=== PATIENT | female | born 1950 | race Caucasian/White ===

== ENCOUNTER → 2017-08-28 | Outpatient (CLI) | payer MEDICARE, BC ==
[2016-01-30 14:01] VITALS: BP 121/65
[~2017-08-28] MED LIST: ASPI-612 PO; ASPI-630 PO; CARB25DR OP; CITA10TA4 PO; CITA40TA5 PO; CLOP75TA PO; CYCL5TAB PO; DOXY100T PO; FEXO180T81 PO; FLUT10SP NS; FLUT9.9S NS; LISI2.5T PO; METO25TA4 PO; OMEP20CA9 PO; PRAV10TA2 PO; PRAV40TA2 PO; Promethazine Hcl/Codeine PO; RANI75TA95 PO; [UNRECOGNIZED DRUG - CODE] PO
--- NOTE | 2017-09-07 13:41 | KCIC ---
DATE: 08/28/2017 EXAM: MAMMO RAZA SCREENING BILATERAL HISTORY: Routine screening COMPARISON: 05/26/2011 This study was interpreted with the benefit of Computerized Aided Detection (CAD). The breast parenchyma shows scattered fibroglandular densities. Breast parenchyma level B. FINDINGS: 2-D and 3-D tomosynthesis imaging was performed in CC and MLO projections. No new or enlarging breast densities are seen. Minimal benign type calcification is present. IMPRESSION: There is no mammographic evidence of malignancy in either breast. BI-RADS CATEGORY: 2 BENIGN FINDING(S) RECOMMENDED FOLLOW-UP: 12M 12 MONTH FOLLOW-UP PQRS compliance statement: Patient information was entered into a reminder system with a target due date for the next mammogram. Mammography is a sensitive method for finding small breast cancers, but it does not detect them all and is not a substitute for careful clinical examination. A negative mammogram does not negate a clinically suspicious finding and should not result in delay in biopsying a clinically suspicious abnormality. "Our facility is accredited by the [employer] Mammography Program."
== END | disposition home or self-care (01) ==
LOC: KCIC MAMMO 10:50
PROVIDERS: ATTEND Internal Medicine
DX: Z12.31 Encounter for screening mammogram for malignant neoplasm of breast (principal)
CPT/HCPCS: 77063; G0202; 77067

== ENCOUNTER 2017-10-26 14:17 | Emergency (ER) | payer MEDICARE, BC ==
[2017-10-26] MEDS: HYDROcodone/APAP 5/325MG 1 TAB TABLET PO (14:47)
== END 2017-10-26 16:03 | disposition home or self-care (01) ==
LOC: ER 14:17
DX: S52.611A Displaced fracture of right ulna styloid process, initial encounter for closed fracture (principal); S52.501A Unspecified fracture of the lower end of right radius, initial encounter for closed fracture; Z86.73 Personal history of transient ischemic attack (TIA), and cerebral infarction without residual deficits; Z95.5 Presence of coronary angioplasty implant and graft; I10 Essential (primary) hypertension; I25.2 Old myocardial infarction; W00.0XXA Fall on same level due to ice and snow, initial encounter; Y93.89 Activity, other specified; Y99.8 Other external cause status; Y92.89 Other specified places as the place of occurrence of the external cause
CPT/HCPCS: 29125; 73110; 99284-25

== ENCOUNTER → 2018-08-10 | Outpatient (CLI) | payer MEDICARE ==
[2017-10-26 14:25] VITALS: BP 145/82
[~2018-08-10] MED LIST changes: +HYDR-971 PO
--- NOTE | 2018-08-10 12:13 | CARD ---
MR#: [id number] Date of Study: 08/10/2018 Ordering Physician: FORTINO ALFONSO, Referring Physician: FORTINO ALFONSO, Tech: Gloria Burgos APPROVED REPORT EXAM: Two-dimensional and M-mode echocardiogram with Doppler and color Doppler. Other Information Quality : GoodHR: 65bpm INDICATION CAD RISK FACTORS Hypertension Hyperlipidemia Previous smoker 2D DIMENSIONS RVDd3.0 (2.9-3.5cm)Left Atrium(2D)3.0 (1.6-4.0cm) IVSd0.7 (0.7-1.1cm)Aortic Root(2D)3.3 (2.0-3.7cm) LVDd5.4 (3.9-5.9cm)LVOT Diameter2.1 (1.8-2.4cm) PWd0.8 (0.7-1.1cm)LVDs2.8 (2.5-4.0cm) FS (%) 48.6 %SV113.3 ml Aortic Valve AoV Peak Beto.104.3cm/sAoV VTI20.0cm AO Peak GR.4.4mmHgLVOT Peak Beto.82.9cm/s LVOT VTI 20.49cmAO Mean GR.2mmHg MARY (VMAX)2.63oh2KUQ (VTI)3.60cm2 Mitral Valve MV E Xoivvgps28.2cm/sMV DECEL [id number] MV A Abvphvmu23.0cm/sMV FYZ70yl E/A Ratio1.2MVA (PHT)4.45cm2 TDI E/Lateral E'10.2E/Medial E'10.5 Pulmonary Valve PV Peak Jvkgunnq47.4cm/sPV Peak Grad.2mmHg Tricuspid Valve TR P. Wjqupfwh659ur/sRAP ZWRFOLVR2xgIc TR Peak Gr.60hnGaNCKA79egIo Pulmonary Vein S1 Qtuwnfqh84.8cm/sD2 Waadvcyq30.5cm/s PVa [id number] LEFT VENTRICLE The left ventricle is normal size. There is normal left ventricular wall thickness. The left ventricu lar systolic function is normal and the ejection fraction is within normal range. The Ejection Fracti on is 55-60%. There is normal LV segmental wall motion. Transmitral Doppler flow pattern is Grade II- pseudonormal filling dynamics. RIGHT VENTRICLE The right ventricle is normal size. There is normal right ventricular wall thickness. The right ventr icular systolic function is normal. ATRIA The left atrium size is normal. The right atrium size is normal. The interatrial septum is intact wit h no evidence for an atrial septal defect or patent foramen ovale as noted on 2-D or Doppler imaging. AORTIC VALVE The aortic valve is normal in structure and function. Doppler and Color Flow revealed trace aortic re gurgitation. There is no significant aortic valvular stenosis. Calculated aortic valve area is 3 cm2 with maximum pressure gradient of 5 mmHg and mean pressure gradient of 3 mmHg. MITRAL VALVE The mitral valve is thickened but opens well. There is no mitral valve stenosis. Doppler and Color-fl ow revealed trace mitral regurgitation. TRICUSPID VALVE The tricuspid valve is normal in structure and function. Doppler and Color Flow revealed trace tricus pid regurgitation. PULMONIC VALVE The pulmonic valve is not well visualized. Doppler and Color Flow revealed no pulmonic valvular regur gitation. GREAT VESSELS The aortic root is normal in size. The IVC is normal in size and collapses >50% with inspiration. PERICARDIAL EFFUSION There is no evidence of significant pericardial effusion. Critical Notification Critical Value: No <Conclusion> The left ventricle is normal size. The left ventricular systolic function is normal and the ejection fraction is within normal range. The Ejection Fraction is 55-60%. There is no significant aortic valvular stenosis. Calculated aortic valve area is 3 cm2 with maximum pressure gradient of 5 mmHg and mean pressure grad ient of 3 mmHg. Doppler and Color Flow revealed trace aortic regurgitation. Doppler and Color-flow revealed trace mitral regurgitation. Doppler and Color Flow revealed trace tricuspid regurgitation. Signed by : Hernandez Potts MD Electronically Approved : 08/10/2018 12:12:12
== END | disposition home or self-care (01) ==
LOC: ECHO 10:02
PROVIDERS: ATTEND Internal Medicine Cardiovascular Disease
DX: I25.10 Atherosclerotic heart disease of native coronary artery without angina pectoris (principal); I10 Essential (primary) hypertension; E78.5 Hyperlipidemia, unspecified; Z87.891 Personal history of nicotine dependence
CPT/HCPCS: 93306

== ENCOUNTER 2019-01-25 06:56 | Outpatient (CLI) | payer MEDICARE ==
[2019-01-25] VITALS (14 sets, daily range): BP systolic 84–148; BP diastolic 43–72
[~2019-01-25] VITALS: Ht 162.6 cm; Wt 82.6 kg
[~2019-01-25 06:56] MED LIST changes: +HYDR-3164 PO; -HYDR-971 PO; +OMEP20CA10 PO; -OMEP20CA9 PO; +RANI-348 PO; -RANI75TA95 PO
[2019-01-25 07:20] LABS: HEMATOCRIT 40.3 % (36.0-47.0); HEMOGLOBIN 13.1 g/dL (12.0-15.5); RED BLOOD COUNT 4.4 x10^6/uL (3.50-5.40); RED CELL DISTRIBUTION WIDTH 12.7 % (11.5-14.5); WHITE BLOOD COUNT 8.4 x10^3/uL (4.0-11.0)
[2019-01-25] MEDS ORDERED: ALEN70TA3 PO (07:23)
[2019-01-25] MEDS ORDERED: LOSA25TA54 PO (07:23)
[2019-01-25] MEDS ORDERED: CRESTOR10 MG PO (07:23)
[2019-01-25] MEDS ORDERED: MULT1TAB52 PO (07:23)
[2019-01-25 07:29] LABS: CALCIUM 8.6 mg/dL (8.5-10.1); CREATININE 0.9 mg/dL (0.6-1.0); GFR 61.9; POTASSIUM 4.2 mmol/L (3.5-5.1)
[2019-01-25 07:36] LABS: PROTHROMBIN TIME PATIENT 12.4 SEC (11.7-14.0)
[2019-01-25] MEDS ORDERED: IODIXANOL 320 MG/ML 100 ML VIAL. ONE (07:40)
[2019-01-25] MEDS ORDERED: LIDOCAINE 1% PF 2 ML VIAL. ONE (07:40)
[2019-01-25] MEDS ORDERED: NITROGLYCERIN 200 MCG/2 ML SYRINGE FOR CATH/VASC LAB. ONE (08:28)
[2019-01-25] MEDS ORDERED: MIDAZOLAM HCL/PF 2 MG/2 ML VIAL. ONE ×2 (08:28→09:12)
[2019-01-25] MEDS ORDERED: HEPARIN for IV BOLUS 10,000 UNIT/10 ML VIAL. ONE (08:28)
[2019-01-25] MEDS ORDERED: fentaNYL PF VIAL 100 MCG/2 ML VIAL ONE ×2 (08:28→09:12)
[2019-01-25] MEDS ORDERED: VERAPAMIL 5 MG/2 ML VIAL. ONE (08:28)
[2019-01-25] MEDS ORDERED: NITROGLYCERIN 200 MCG/2 ML SYRINGE FOR CATH/VASC LAB. IART ONE (08:45)
[2019-01-25] MEDS ORDERED: VERAPAMIL 5 MG/2 ML VIAL. IART ONE (08:45)
[2019-01-25] MEDS ORDERED: MIDAZOLAM HCL/PF 2 MG/2 ML VIAL. IV ONE ×2 (08:45→09:45)
[2019-01-25] MEDS ORDERED: fentaNYL PF VIAL 100 MCG/2 ML VIAL IV ONE ×2 (08:45→09:45)
[2019-01-25] MEDS ORDERED: LIDOCAINE 1% PF 2 ML VIAL. INJ ONE (08:45)
[2019-01-25] MEDS ORDERED: HEPARIN for IV BOLUS 10,000 UNIT/10 ML VIAL. IART ONE (08:45)
[2019-01-25] MEDS ORDERED: BIVALIRUDIN 250 MG VIAL. IV ONE ×2 (09:02→09:15)
[2019-01-25] MEDS ORDERED: CLOPIDOGREL BISULFATE 75 MG TABLET ONE (09:41)
[2019-01-25] MEDS ORDERED: ASPIRIN 325 MG TABLET ONE (09:41)
[2019-01-25] MEDS ORDERED: ASPIRIN 325 MG TABLET PO ONE (09:45)
[2019-01-25] MEDS ORDERED: CLOPIDOGREL BISULFATE 75 MG TABLET PO ONE (09:45)
[2019-01-25] MEDS ORDERED: IODIXANOL 320 MG/ML 100 ML VIAL. IART ONE (10:00)
--- NOTE | 2019-01-25 10:14 | CARD ---
MR#: [id number] Date of Study: 01/25/2019 Ordering Physician: FORTINO ALFONSO, Referring Physician: FORTINO ALFONSO Tech: LENNOX SNYDER RTR APPROVED REPORT Technologist: LENNOX SNYDER RTR Nurse: JYOTHI HLIL RN Procedure(s) performed: 1. Left heart catheterization, selective coronary angiography and left ventr iculography via right transradial approach 2. Successful PCI/drug eluting stent placement to left anterior descending artery Moderate sedation:60 mins Fluoro time:18.6 min Dose:61.8 GYCM2 Contrast: 144 ml INDICATION The indication(s) include : unstable angina . CSHA Clinical Frailty Scale CSHA Clinical Frailty Scale: Very Fit Heart Failure Heart Failure: No PROCEDURE NARRATIVE After explaining the risks, benefits and alternative options, informed consent was obtained from rosie ent. Patient was brought to the cardiac Shredding Machine Knife Changer and right wrist was prepped and draped in the usual fashion after confirming a positive modified Rafi's test. Arterial access was obtained in the righ t radial artery and a 6 Angolan sheath was inserted. 6 Angolan Antonio catheter was used to perform mark ective angiography of the left and right coronary arteries. 6 Angolan pigtail catheter was used to pe rform left ventriculography. The following findings were noted. FINDINGS 1. Hemodynamics: Left ventricular end-diastolic pressure of 15 mmHg. No pullback gradient across th e aortic valve. 2. Left ventriculography: Normal left ventricle systolic function with ejection fraction estimated at 60%. No significant mitral regurgitation seen. 3. Coronary angiography: a. The left main coronary artery arose from the left sinus of Valsalva, gave rise to the left anteri or descending and left circumflex arteries and did not show any significant stenosis. b. The left anterior descending artery showed 30% stenosis in the proximal segment, patent stent in the midsegment and 90% focal stenosis just proximal to the stent. c. The left circumflex artery did not show any significant stenosis. d. The right coronary artery was a large and dominant vessel arising from the right sinus of Valsalv a that showed 30% in-stent restenosis in the proximal portion of the previously placed stent in the p roximal to midsegment. INTERVENTION The left main coronary artery was engaged with a 6 Angolan XB 3.0 guide catheter after initial attempt s to engage with 6 Angolan XB 3.5 were unsuccessful. The stenosis in the midsegment of the left anteri or descending artery was then crossed with a 0.014 inch sarvaMAIL Pro water guidewire. This was predilate d with a 2.5 x 15 mm trek balloon following which this was successfully treated with a 3.0 x 18 mm re solute paul drug-eluting stent. Follow-up angiography showed resolution of the stenosis to 0% with TI UT-3 distal flow. Patient tolerated the procedure well. Hemostasis was achieved using TR band. There were no immediate complications. SHERMAN Flow SHERMAN Flow (Pre-Intervention): SHERMAN-3 SHERMAN Flow (Post-Intervention): SHERMAN-3 Conclusion 1. Patent previously placed stents in the left anterior descending and right coronary arteries. Rosie ent had 90% stenosis just proximal to the previously placed stent in the left anterior descending art bora. 2. Successful PCI/drug eluting stent placement to the left anterior descending artery. 3. Normal left ventricle systolic function with ejection fraction estimated at 60%. Recommendations 1. Aspirin 325 mg daily 2. Plavix 75 mg daily for preferably one year 3. Cardiovascular risk factor modification Signed by : Fortino Alfonso, Electronically Approved : 01/25/2019 10:13:54
[2019-01-25] MEDS ORDERED: IV 1/2 NORMAL SALINE 1,000 ML IV SCH (10:17)
--- NOTE | 2019-01-25 10:17 | PDOC ---
MODERATE SEDATION ASSESSMENT RISKS/ALTERNATIVES Risks/Alternatives Risks and alternatives of this type of sedation and procedure discussed with: RISK/ALTERNATIVES: Patient H & P ON CHART H & P H & P on chart and reviewed for co-morbid conditions and appropriate labs. H&P ON CHART: Yes STATUS PREG STATUS ASSESSED: N/A MEDS/ALLERGIES REVIEWED Meds/Allergies Reviewed Medications and Allergies including time and route of recently administered narcotics and sedatives. MEDS/ALLERGIES REVIEWED: Yes ASA RATING ASA RATING: II AIRWAY ASSESSMENT Airway Assessment Airway patency, oral function limitations, presence of caps, crowns, dentures, partials, and ability to extend neck assessed. AIRWAY ASSESSMENT: Yes MALLAMPATI SCORE MALLAMPATI SCORE: II PRE-SEDATION ASSESSMENT PRE-SEDATION ASSESSMENT: Yes FORTINO ALFONSO MD Jan 25, 2019 10:17
[2019-01-25] MEDS ORDERED: NITROGLYCERIN SUBLINGUAL 0.4 MG BOTTLE OF 25. SL PRN (10:30)
--- NOTE | 2019-01-25 11:29 | NUR ---
At 1035 patient complained that her right arm was sore/hurting, checked TR site and hematoma forming. Called Ankit in dental laboratory worker and he came over to evaluate and helped reposition TR band and work out hematoma. Radial site is bruised but is softer and band is at 8cc of air. Will start taking out air at 1145. Patient complains of sore right shoulder and arm in general but radial site is less tender per patient.
[2019-01-25] MEDS ORDERED: ACETAMINOPHEN 325 MG TABLET. PO ONE (12:00)
[2019-01-25] MEDS ORDERED: PANTOPRAZOLE 40 MG TABLET.DR. PO ONE (12:00)
--- NOTE | 2019-01-25 12:45 | NUR ---
This RN asked Ankit to come back and look at patient's radial site now that all of air is out of TR band. Dr. Santiago came to bedside and discussed site with patient. Ankit is holding pressure on radial site for 10 minutes and then we will monitor site for an hour, if site looks ok we will place dressing and discharge patient home. Site assessed and very ecchymotic but soft with no bleeding. Reiterated to patient that she cannot use her right arm at all for the next 24 hours.
--- NOTE | 2019-01-25 14:18 | NUR ---
Discharge Note: [facility] Discharge instructions and discharge home medications reviewed with Patient and a copy given. All questions have been answered and understanding verbalized. The following instructions and handouts were given: moderate sedation and radial site care Discontinued lines and drains: Peripheral IV intact. Patient discharged to Home or Self Care withFamily Membervia Wheelchair Additional armboard support placed so that patient would remember to not use her right arm for 24 hours.
[2019-01-26] MEDS ORDERED: ASPIRIN ENTERIC COATED 325 MG TABLET.DR. PO SCH (08:00)
[2019-01-26] MEDS ORDERED: CLOPIDOGREL BISULFATE 75 MG TABLET PO SCH (08:00)
== END 2019-01-25 14:40 | disposition home or self-care (01) ==
LOC: CCL 06:56
PROVIDERS: ATTEND Internal Medicine Cardiovascular Disease
DX: I25.110 Atherosclerotic heart disease of native coronary artery with unstable angina pectoris (principal); I10 Essential (primary) hypertension; E78.5 Hyperlipidemia, unspecified; G47.33 Obstructive sleep apnea (adult) (pediatric); Z86.73 Personal history of transient ischemic attack (TIA), and cerebral infarction without residual deficits; I25.2 Old myocardial infarction; Z90.710 Acquired absence of both cervix and uterus; Z82.49 Family history of ischemic heart disease and other diseases of the circulatory system; Z87.891 Personal history of nicotine dependence; Z72.89 Other problems related to lifestyle; Z79.01 Long term (current) use of anticoagulants; Z79.899 Other long term (current) drug therapy
CPT/HCPCS: 36415; 80048; 85027; 85610; 93458; 99152; 99153; C1725; C1769; C1874; C1887; C1892; C9600; J0583; J1644; J2250; J3010; J3490; Q9967; 92928

== ENCOUNTER → 2019-03-14 | Outpatient (CLI) | payer MEDICARE ==
[2019-01-25 13:30] VITALS: BP 99/43
[~2019-03-14] MED LIST changes: +ALEN70TA3 PO; +CRESTOR10 MG PO; +LOSA25TA54 PO; +MULT1TAB52 PO
--- NOTE | 2019-03-14 17:14 | RAD ---
MR#: [id number] Date of Study: 03/14/2019 Ordering Physician: FORTINO ALFONSO, Referring Physician: FORTINO ALFONSO, Tech: Shoaib Chandler MBA, RDMS, RVT, RDCS, RTR APPROVED REPORT Patient Location: OUT-PATIENT Indications Rest Pain:Bilaterally cad VELOCITY AND DOPPLER WAVEFORM ANALYSIS RIGHT cm/secWaveformSeverity LEFT cm/secWaveform Severity dCFA 156.0TriphasicdCFA 130.0Triphasic Prof Fem Art. 66.0TriphasicProf Fem Art. 77.0Triphasic Fem Art Prox. 122.0TriphasicFem Art Prox. 127.0Triphasic Fem Art Mid. 103.0TriphasicFem Art Mid. 89.0Triphasic Fem Art Dist. 122.0TriphasicFem Art Dist. 85.0Triphasic Pop Art(Fossa) 73.0TriphasicPop Art(AK) 81.0Triphasic PRODUCTION TECHNICIAN Prox. 68.0TriphasicPTA Prox. 66.0Triphasic PRODUCTION TECHNICIAN Dist. 37.0TriphasicPTA Dist. 115.0Triphasic Per Art Mid. 92.0TriphasicPer Art Mid. 30.0Triphasic DENISHA Prox. 60.0BiphasicATA Prox. 57.0Triphasic DPA 73MonophasicDPA 66Triphasic Findings Grayscale images of the bilateral lower 70 arterial vessels reveal mostly triphasic and biphasic wave forms. No significant flow-limiting stenosis is identified in the above knee vessels. Below the knee the there is three-vessel runoff. On the right side the posterior tibial velocities di stally are diminished suggestive of a 50% stenosis and on the left side there is likely 50% stenosis involving the peroneal artery. Otherwise no focal stenosis identified. Critical Notification Critical Value: No <Conclusion> 1. No focal high-grade stenosis identified bilaterally with three-vessel runoff below the knee. Signed by : Hussain Franz, Electronically Approved : 03/14/2019 17:14:20
== END | disposition home or self-care (01) ==
LOC: US 11:38
PROVIDERS: ATTEND Internal Medicine Cardiovascular Disease
DX: I25.10 Atherosclerotic heart disease of native coronary artery without angina pectoris (principal); Z87.891 Personal history of nicotine dependence
CPT/HCPCS: 93925